=== PATIENT | male | born 1990 | race Two or more races ===

== ENCOUNTER 2017-04-01 10:17 | Emergency (ER) | payer BC ==
[~2017-04-01] VITALS: Ht 154.9 cm; Wt 50.0 kg
[2017-04-01 10:19] VITALS: BP 130/86; PULSE 105; RESP 15; TEMP 99.4; O2SAT 100
[2017-04-01] MEDS ORDERED: OSEL75 PO (10:36)
--- NOTE | 2017-04-01 10:39 | PD ---
HPI Chief Complaint: Pain: Acute or Chronic Time Seen by Provider: 10:34 Travel History International Travel<30 days: No Contact w/Intl Traveler<30days: No Traveled to known affect area: No History of Present Illness HPI 27-year-old male presents for evaluation of sore throat, chills and myalgias. Symptoms started yesterday somewhat abruptly. He denies any abdominal pain, nausea or vomiting, dysuria, IV drug use, cough or congestion, rash. He reports that his has 2 nephews were diagnosed with influenza and they are currently living with them. No other complaints at this time. [facility] Social History Alcohol Use: No Tobacco Use: No Allergies-Medications (Allergen,Severity, Reaction): Coded Allergies: No Known Allergies (Unverified , 04/01/17) Reported Meds & Prescriptions Reported Meds & Active Scripts Active Tamiflu (Oseltamivir Phosphate) 75 Mg Cap 75 Mg PO BID 5 Days Review of Systems Except as stated in HPI: all other systems reviewed are Neg Physical Exam Narrative GENERAL: Well-developed well-nourished male in no acute distress SKIN: Warm and dry. HEAD: Atraumatic. Normocephalic. EYES: Pupils equal and round. No scleral icterus. No injection or drainage. ENT: No nasal bleeding or discharge. Mucous membranes pink and moist. NECK: Trachea midline. No JVD. CARDIOVASCULAR: Regular rate and rhythm. No murmur appreciated. RESPIRATORY: No accessory muscle use. Clear to auscultation. Breath sounds equal bilaterally. GASTROINTESTINAL: Abdomen soft, non-tender, nondistended. Hepatic and splenic margins not palpable. MUSCULOSKELETAL: No obvious deformities. No clubbing. No cyanosis. No edema. NEUROLOGICAL: Awake and alert. No obvious cranial nerve deficits. Motor grossly within normal limits. Normal speech. PSYCHIATRIC: Appropriate mood and affect; insight and judgment normal. Data Data Last Documented VS Vital Signs Date Time Temp Pulse Resp B/P (MAP) Pulse Ox O2 Delivery O2 Flow Rate FiO2 04/01/17 10:19 99.4 105 15 130/86 (101) 100 Orders Orders Ed Discharge Order (04/01/17 10:37) MDM Medical Decision Making Medical Screen Exam Complete: Yes Emergency Medical Condition: Yes Medical Record Reviewed: Yes Differential Diagnosis Influenza, pneumonia, rhabdomyolysis, pharyngitis Narrative Course 27-year-old male with 2 days of chills, myalgias, sore throat, 2 family members at home diagnosed recently with influenza. He appears well. His history is consistent with likely influenza and he will be started on Tamiflu. Diagnosis Primary Impression: Viral syndrome Additional Instructions: Medication as prescribed. Stay well hydrated well-nourished, get plenty of rest. Follow-up with primary care physician as needed and return for any emergent medical conditions. Med/Other Pt SpecificInfo: Prescription(s) given Scripts Oseltamivir (Tamiflu) 75 Mg Cap 75 MG PO BID for Mgmt Viral Infection for 5 Days, #10 CAP 0 Refills Prov: Wilson Taveras MD 04/01/17 Disposition: 01 DISCHARGE HOME Condition: Stable Ace Guerra Apr 01, 2017 10:39
== END 2017-04-01 10:49 | disposition home or self-care (01) ==
LOC: NEPK 10:17
DX: B34.9 Viral infection, unspecified (principal)
CPT/HCPCS: 99283